=== PATIENT | female | born 1950 | race Caucasian/White ===

== ENCOUNTER 2022-12-11 12:16 | Outpatient (OUT) | payer MEDICARE, OTHER, SELFPAY ==
--- NOTE | 2022-12-11 | VEIN_ITS ---
Patient: SHANIA FOURNIER Exam Date: 12/11/2022 : 1950 Gender:F Ordering : DR ALLEN OSORIO M.D. Admission #: [id number] Family : Order #: [id number] CLICK HERE TO VIEW EXAM RADIOLOGY REPORT PROCEDURE: [facility] - OFFICE VISIT INITIAL COMPARISON: None. PROGRESS NOTES: [age] year old female who presents with a new onset 3 year history of nonhealing wound just cephalad to left heel. The patient's left leg symptoms are worse than the right. There has been a the occurring wound cephalad to left heel ever since Achilles tendon surgery 3 years ago which has finally mostly healed. The patient denies any signs and symptoms to suggest arterial ischemia. The patient describes a family history varicose veins on maternal sign. The patient has drinking and smoking history of chronic tobacco use; no alcohol consumption. Patient has a past medical history significant for varicose veins and prior treatment including closure of the great saphenous veins bilaterally 13 years ago. The patient denies a history of deep venous thrombus or pulmonary embolus. See separate history and physical for medication list. Prior closure of great saphenous veins. Current use of compression stockings. After review of nurse notes, history and physical exam I discussed at length the pathophysiology of venous hypertension and possible treatments, therapies and strategies available. We discussed at length the importance of elevating the lower extremities above the level of the heart, increased physical activity and compression stocking use. Ultrasound venous reflux study performed today was discussed at length with the patient. The report demonstrates absent right and left great saphenous veins. A few mildly dilated branch saphenous varicosities bilaterally. PHYSICAL EXAM: The right leg demonstrates no significant varicosities, multiple spider veins, no ulceration, no significant edema, some skin discoloration which appears to be related to scarring from prior Achilles tendon repair. The left leg demonstrates no significant varicosities, multiple spider veins, no ulceration, no significant edema, some skin discoloration which appears to be related to scarring from prior Achilles tendon repair and long-term slow healing of wound. Both thighs, legs and feet were symmetrically warm to the touch. Good posterior tibial and dorsalis pedis pulses were present bilaterally. VEIN/[facility] EST Comprehensive IMPRESSION: 1. Mild venous insufficiency not expected to contribute to patient's current symptoms or resulted in any significant improvement. 2. Mild lower extremity varicose veins 3. Mild lower extremity subcutaneous edema 4. No known flow significant arterial disease 5. CEAP: C2, EC, , LA PLAN: 1. Continued use of compression stockings 2. Elevated legs and increased physical activity symptomatic relief 3. No treatment is planned or desired by patient. Patient will follow-up in future if needed. Nurse notes, history and physical were reviewed and confirmed, see attached forms. The nurse was present throughout the physical exam and consultation Dictated by: Gurinder Dahl M.D. on 12/11/2022 at 14:00 Approved by: Gurinder Dahl M.D. on 12/11/2022 at 14:09
--- NOTE | 2022-12-11 | VEIN_ITS ---
Patient: SHANIA FOURNIER Exam Date: 12/11/2022 : 1950 Gender:F Ordering : DR ALLEN OSORIO M.D. Admission #: [id number] Family : Order #: [id number] CLICK HERE TO VIEW EXAM RADIOLOGY REPORT PROCEDURE: VC EXT VENOUS REFLUX DARRELL LMTD COMPARISON: None. INDICATIONS: Pain due to varicose veins of bilateral legs I83.813 TECHNIQUE: Duplex imaging of the lower extremity to assess the deep and superficial venous system for the presence of deep or superficial venous incompetence and to document the location and severity of disease. The study includes evaluation of the great saphenous vein (GSV), anterior accessory saphenous vein (AASV) and small saphenous vein (SSV). Patient scanned in reverse Trendelenburg and standing. FINDINGS: RIGHT LOWER EXTREMITY: Saphenofemoral Junction Reflux: YesNo mm sec GSV: Diam (mm) Reflux/ Time (sec) Proximal Thigh N/A Mid Thigh N/A Distal Thigh N/A Prox Calf N/A Mid Calf N/A Saphenopopliteal Junction Reflux: 2.3mm No SSV: Proximal Calf 3.0 Yes 0.6 Mid Calf 2.9 No AASV: Not present Proximal Thigh Mid Thigh Distal Thigh Thrombi: No acute or chronic thrombus visualized Compressibility: Normal Flow: Normal Preforator: Dist/med calf 2.0mm with 0s reflux. Mid/med calf 5.3mm with 0s reflux. Tech Note: GSV was previously ablated.Patent varicose vein mid/med calf 2.0mm with 0.8s reflux. Patent varicose vein medial knee 3.3mm with 0.7s reflux. Patent mid-distal GSV is in calf is patent and measures 2.2mm with 0.5s reflux. LEFT LOWER EXTREMITY: Saphenofemoral Junction Reflux: No mm sec GSV: Diam (mm) Reflux/Time (sec) Proximal Thigh N/A Mid Thigh N/A Distal Thigh N/A Prox Calf N/A Mid Calf N/A Saphenopopliteal Junction Relux: 3.2 mm No SSV: Proximal Calf 2.5 No Mid Calf 2.4 No AASV: Not present Proximal Thigh Mid Thigh Distal Thigh Thrombi: No acute or chronic thrombus visualized Compressibility: Normal Flow: Normal Return Checker: No patent perforators visualized Tech Note: GSV was previously ablated. Patent varicose vein mid/med calf 2.2mm with 0s reflux. Patent varicose vein distal GSV 2.3mm with 0.7s reflux. CONCLUSION: 1. A few small incompetent branch saphenous varicosities bilaterally of questionable clinical significance. 2. Prior treatment and closure of great saphenous veins bilaterally approximately 13 years ago. Dictated by: Gurinder Dahl M.D. on 12/11/2022 at 13:49 Approved by: Gurinder Dahl M.D. on 12/11/2022 at 14:00
== END 2022-12-11 12:17 | disposition home or self-care (01) ==
LOC: VC 12:16
PROVIDERS: Visit Provider Radiology Diagnostic Radiology
DX: R60.0 Localized edema (principal)
CPT/HCPCS: 93970; G0463

== ENCOUNTER 2023-05-19 09:59 | Outpatient (OUT) | payer MEDICARE, OTHER, SELFPAY ==
--- NOTE | 2023-05-19 | XR_ITS ---
The [address] [address] Patient Name: SHANIA FOURNIER MRN: [id number] date: 1950 Sex: F Assigned Patient Location: Current Patient Location: Accession/Order Number: [id number] Exam Date: 05/19/2023 10:01 Report Date: 05/19/2023 11:11 At the request of: GRANT LOUIE Procedure: XR ankle LT min 3V PROCEDURE: XR ankle LT min 3V COMPARISON: None. HISTORY: LEFT ANKLE PAIN FINDINGS: BONES:No acute fracture or dislocation. Mild degenerative changes. Posterior calcaneal osteotomy. SOFT TISSUES:Soft tissue prominence in the region of the Achilles tendon EFFUSION:None visible. OTHER: Negative. XR/XR ankle LT min 3V IMPRESSION: Soft tissue prominence in the region of the Achilles tendon Electronically authenticated by: ALLEN OSORIO Date: 05/19/2023 11:11
== END 2023-05-19 10:00 | disposition home or self-care (01) ==
LOC: EC 10:00
PROVIDERS: Visit Provider Podiatrist Foot & Ankle Surgery
DX: M76.62 Achilles tendinitis, left leg (principal)
CPT/HCPCS: 73610